=== PATIENT | female | born 1935 | race Two or more races ===

== ENCOUNTER 2018-05-21 11:09 | Emergency (ER) | payer MEDICARE, MEDICAID ==
[~2018-05-21] VITALS: Ht 154.9 cm; Wt 64.0 kg
[2018-05-21] MEDS ORDERED: NITR0.4T49 SL (11:24)
[2018-05-21] MEDS ORDERED: PANT40TA4 PO (11:24)
[2018-05-21] MEDS ORDERED: RISP1TAB26 PO (11:24)
[2018-05-21] MEDS ORDERED: GABA-529 PO (11:24)
[2018-05-21] MEDS ORDERED: ATOR10TA69 PO (11:24)
[2018-05-21] MEDS ORDERED: ALBU6.7H IH (11:24)
[2018-05-21] MEDS ORDERED: DONE5TAB33 PO (11:24)
[2018-05-21] MEDS ORDERED: MIRT15TA6 PO (11:24)
[2018-05-21] MEDS ORDERED: METF500T6 PO (11:24)
[2018-05-21] MEDS ORDERED: NATE120T PO (11:24)
[2018-05-21 13:08] LABS: HEMATOCRIT 33.3 % (36.0-48.0); HEMOGLOBIN 10.5 g/dL (12.0-16.0); MEAN CORPUSCULAR HEMOGLOBIN 26.7 pg (28.0-32.0); MEAN CORPUSCULAR VOLUME 84.8 fL (81.0-99.0); PLATELET 252 x1000/uL (130-400); RED BLOOD CELL COUNT 3.93 mill/uL (4.2-5.4); RED CELL DISTRIBUTION WIDTH 26.9 % (11.6-14.6)
[2018-05-21 13:11] LABS: CHLORIDE 108 mEq/L (98-107)
[2018-05-21 13:13] LABS: PROTHROMBIN TIME 10.3 sec (9.1-11.1)
[2018-05-21 15:20] VITALS: BP 97/57
== END 2018-05-21 15:20 ==
LOC: ER 11:19 → EDBD 11:19 → ER 15:20
DX: R53.1 Weakness (principal); R00.0 Tachycardia, unspecified
CPT/HCPCS: 36415; 71045; 80053; 84484; 85027; 85610; 85730; 93005; 99285